=== PATIENT | male | born 1995 | race Caucasian/White ===

== ENCOUNTER 2021-09-15 19:15 | Emergency (ER) | payer BC ==
[2021-09-15] MEDS ORDERED: PERCOCET 325 MG1 TAB PO (20:57)
[2021-09-15] MEDS ORDERED: CYCLOBENZAPRINE10 M1 PO (20:57)
[2021-09-15 22:08] VITALS: BP 145/68
== END 2021-09-15 22:09 | disposition home or self-care (01) ==
LOC: ED 19:15
DX: M26.621 Arthralgia of right temporomandibular joint (principal); Z28.310 Unvaccinated for COVID-19; V86.56XA Driver of dirt bike or motor/cross bike injured in nontraffic accident, initial encounter; Y92.410 Unspecified street and highway as the place of occurrence of the external cause
CPT/HCPCS: J2270

== ENCOUNTER → 2021-09-24 | Outpatient (CLI) | payer BC ==
[~2021-09-24] MED LIST: CYCLOBENZAPRINE10 M1 PO; PERCOCET 325 MG1 TAB PO
== END ==
LOC: ED 12:44 → EDSTATUS 13:31 → AMSURD 13:32
DX: Z48.02 Encounter for removal of sutures (principal)

== ENCOUNTER → 2023-02-10 | Outpatient (CLI) | payer BC, OTHER ==
[2023-02-12 14:10] LABS: ANA SCREEN with REFLEX Negative (Negative)
== END ==
LOC: LAB 09:42
PROVIDERS: Nurse Practitioner
DX: G56.03 Carpal tunnel syndrome, bilateral upper limbs (principal); M25.50 Pain in unspecified joint; K59.09 Other constipation; L60.0 Ingrowing nail; I10 Essential (primary) hypertension; M54.50 Low back pain, unspecified; F90.9 Attention-deficit hyperactivity disorder, unspecified type; G47.00 Insomnia, unspecified

== ENCOUNTER → 2023-11-16 | Outpatient (CLI) | payer BC | LOC: RAD 16:32 | DX: M43.22 Fusion of spine, cervical region (principal) ==

== ENCOUNTER → 2023-12-28 | Outpatient (CLI) | payer BC | LOC: LAB 10:51 | DX: E55.9 Vitamin D deficiency, unspecified (principal) ==

== ENCOUNTER → 2024-06-13 | Outpatient (CLI) | payer OTHER ==
[2024-06-13 17:42] LABS: BASO # 0.02 K/mm3 (0.02-0.10); EOS % 2.9 % (0.0-4.0); HEMATOCRIT 46.2 % (42.0-52.0); LYMPH# 2.29 K/mm3 (1.50-4.00); MEAN CELL VOLUME 85 fl (78-100); MEAN CORPUSCULAR HEMOGLOBIN 30 pg (27-31); MEAN CORPUSCULAR HGB CONC 35 g/dL (33-37); MEAN PLATELET VOLUME 9.1 fl (7.4-10.4); NEU # 3.87 K/mm3 (1.40-6.50); PLATELET COUNT 277 K/mm3 (130-400); RED BLOOD COUNT 5.42 M/mm3 (4.20-5.60); RED CELL DISTRIBUTION WIDTH 13.1 % (11.5-14.5); WHITE BLOOD COUNT 6.9 K/mm3 (4.8-10.8)
[2024-06-13 17:52] LABS: ALBUMIN 4.8 g/dL (3.5-5.0)
[2024-06-13 17:53] LABS: CALCIUM 9.6 mg/dL (8.3-10.5)
[2024-06-13 17:54] LABS: TOTAL PROTEIN 7.9 g/dL (6.4-8.3)
[2024-06-13 17:56] LABS: TOTAL BILIRUBIN 0.9 mg/dL (0.2-1.2)
== END ==
LOC: RAD 17:11
PROVIDERS: Nurse Practitioner
DX: Z00.00 Encounter for general adult medical examination without abnormal findings (principal); Z13.220 Encounter for screening for lipoid disorders; E55.9 Vitamin D deficiency, unspecified; M25.50 Pain in unspecified joint; M25.512 Pain in left shoulder

== ENCOUNTER → 2024-07-11 | Outpatient (CLI) | payer OTHER | LOC: RAD 10:28 | DX: M47.817 Spondylosis without myelopathy or radiculopathy, lumbosacral region (principal); M51.370 Other intervertebral disc degeneration, lumbosacral region with discogenic back pain only ==